=== PATIENT | female | born 1990 | race American Indian/Alaskan Native ===

== ENCOUNTER 2016-12-18 08:15 | Emergency (ER) | payer OTHER ==
[2016-12-18 09:08] VITALS: BP 128/84
--- NOTE | 2016-12-18 09:53 | Emergency Department Report ---
ED Female HPI - General Chief complaint: Skin/Abscess/Foreign Body Stated complaint: OVARIAN CYST/PAIN Time Seen by Provider: 12/18/16 09:52 Source: patient, family Mode of arrival: Ambulatory Limitations: No Limitations - History of Present Illness Initial comments: Patient here complaining of cyst in the left side of her labia since . Denies any drainage. She says she had a temp of 99.7 on Saturday. Denies Nausea or vomiting. Denies any urinary burning or frequency.Deniesany abdominal or back pain. reports pain is 10 out of 10 and she's had this several times before and they gave her antibiotic without drainage. She reports that she doesn't want any drainage she just wants antibiotic. MD Complaint: other (vaginal abscess) Onset/Timin -: days(s) Location: labia Radiation: non-radiating Severity: severe Severity scale (0 -10): 10 Quality: other (Throbbing) Consistency: constant Improves with: none, bathing Worsens with: movement Are you Now?: No Associated Symptoms: fever/chills. denies: vaginal discharge, vaginal bleeding , abdominal pain, nausea/vomiting, headaches, loss of appetite, dysuria, hematuria, rash, seizure, shortness of breath, syncope, weakness - Related Data Sexually active: Yes (with female partner) Previous Rx's Medication Instructions Recorded Last Taken Type Ibuprofen [Motrin] 600 mg PO Q8H PRN #15 tablet 12/18/16 Unknown Rx Sulfamethoxazole/Trimethoprim 1 each PO BID #20 tablet 12/18/16 Unknown Rx [Bactrim DS TAB] Allergies Allergy/AdvReac Type Severity Reaction Status Date / Time No Known Allergies Allergy Unverified 12/18/16 09:03 ED Review of Systems ROS: Stated complaint: OVARIAN CYST/PAIN Other details as noted in HPI Comment: All other systems reviewed and negative Constitutional: chills, fever ENT: denies: throat pain Respiratory: no symptoms reported Cardiovascular: as per HPI. denies: chest pain, palpitations, edema, syncope Gastrointestinal: denies: abdominal pain, nausea, vomiting, diarrhea, hematemesis Genitourinary: other (Pain and Abscess to lt labia). denies: urgency, dysuria, frequency, hematuria, discharge, abnormal menses, dyspareunia Musculoskeletal: denies: back pain, arthralgia Skin: other (Pain and Abscess to lt labia). denies: rash Neurological: denies: headache ED Past Medical Hx - Past Medical History Previous Medical History?: No - Surgical History Past Surgical History?: No - Family History Family history: no significant - Social History Smoking Status: Never Smoker Substance Use Type: None - Medications Home Medications: Home Medications Medication Instructions Recorded Confirmed Last Taken Type Ibuprofen [Motrin] 600 mg PO Q8H PRN #15 tablet 12/18/16 Unknown Rx Sulfamethoxazole/Trimethoprim 1 each PO BID #20 tablet 12/18/16 Unknown Rx [Bactrim DS TAB] ED Physical Exam - General Limitations: No Limitations General appearance: alert, in no apparent distress - Head Head exam: Present: atraumatic, normocephalic, normal inspection - Eye Eye exam: Present: normal appearance, PERRL, EOMI. Absent: periorbital swelling , periorbital tenderness Pupils: Present: normal accommodation - ENT ENT exam: Present: normal exam, normal orophraynx, mucous membranes moist, TM's normal bilaterally, normal external ear exam - Neck Neck exam: Present: normal inspection, full ROM. Absent: tenderness, meningismus, lymphadenopathy - Respiratory Respiratory exam: Present: normal lung sounds bilaterally. Absent: respiratory distress, chest wall tenderness - Cardiovascular Cardiovascular Exam: Present: regular rate, normal rhythm, normal heart sounds - GI/Abdominal GI/Abdominal exam: Present: soft, normal bowel sounds. Absent: distended, tenderness, guarding, rebound, rigid - External exam: Present: erythema (left labia with erythema), swelling (left labia with swelling areas of induration and fluctuance. Tender to palpate without drainage). Absent: normal external exam, lacerations, bleeding - Extremities Exam Extremities exam: Present: normal inspection, full ROM, normal capillary refill. Absent: tenderness, pedal edema, joint swelling, calf tenderness - Back Exam Back exam: Present: normal inspection, full ROM. Absent: tenderness, CVA tenderness (R), CVA tenderness (L), muscle spasm, paraspinal tenderness, vertebral tenderness, rash noted - Neurological Exam Neurological exam: Present: alert, oriented X3, normal gait, reflexes normal. Absent: motor sensory deficit - Psychiatric Psychiatric exam: Present: normal affect, normal mood - Skin Skin exam: Present: warm, dry, intact, other (abscess left labia) - Expanded Skin Exam Expanded Type of lesion: Present: abscess (labia) Distribution of rash: genitals Description of rash: Present: tenderness, erythematous, swelling, fluctuant, indurated. Absent: vesicular, blisters, discharge ED Course Vital Signs 12/18/16 09:03 Temperature 98.4 F Pulse Rate 81 Respiratory 16 Rate Blood Pressure 128/84 O2 Sat by Pulse 100 Oximetry - Reevaluation(s) Reevaluation #1: 12/18/16 12:19 Patient given clindamycin 600 mg IM along with Capac 5/325 mg by mouth empirically treated for abscess and medication for pain. See procedure note an incision and drainage. A she did not want area to be drained but I told her that there is pus inside that area and she is having pain due to the pus and she will need to have that area drained to get some relief. She pondered for a while and then agreed to procedure. 12/18/16 12:19 - I & D Left Vagina Type of Procedure: Complex Site: left labia Blade Size: 11 I & D Procedure: betadine prep, sterile drapes applied, sterile dressing applied , gauze wick placed Progress: Area prepped and cleansed with normal saline and Betadine-soaked and 5 cc of Marcaine injected to site prior to procedure. ED Medical Decision Making - Medical Decision Making ED course: Procedure note for I and D details. Patient presents to emergency room with left labia pain and swelling and says she's had repeated incidents in the past. One have incision and drainage but after encouragement an explanation of abscess she decided to have the procedure. Tolerated procedure well. And given clindamycin 600 mg IM and emergency room empirically. She was also given Capac 5/325 mg 2 tablets by mouth in emergency room. Abscess drained and patient says she felt relieved. I instructed her to soak in sitz baths 3-4 times a day, keep affected ear clean and dry and to return to the emergency room for removal of packing in 4 days. discharged home with prescription for Bactrim tram and Motrin Critical care attestation.: If time is entered above; I have spent that time in minutes in the direct care of this critically ill patient, excluding procedure time. ED Disposition Clinical Impression: Abscess, vagina, Encounter for incision and drainage procedure, Cellulitis of female genitalia Disposition: DISCHARGED TO HOME OR SELFCARE Is pt being admited?: No Does the pt Need Aspirin: No Condition: Stable Instructions: Abscess Incision and Drainage (ED), Cellulitis (ED) Additional Instructions: Please return to the emergency room in 4 days to have packing removed. Please take antibiotic as prescribed. Can use sitz bath 3- 4 times a day to facilitate drainage. Prescriptions: Ibuprofen [Motrin] 600 mg PO Q8H PRN #15 tablet PRN Reason: Pain Sulfamethoxazole/Trimethoprim [Bactrim DS TAB] 1 each PO BID #20 tablet Referrals: PRIMARY CARE [Primary Care Provider] - 2-3 Days [facility] [Provider Group] - 2-3 Days Forms: Accompanied Note, Work/School Release Form(ED)
[2016-12-18] MEDS ORDERED: NORCO 5/325 PO ONE (09:54)
[2016-12-18] MEDS ORDERED: MARCAINE 0.5% INFILTRATI ONE (09:54)
[2016-12-18] MEDS ORDERED: CLEOCIN IM ONE (09:54)
== END 2016-12-18 12:34 | disposition home or self-care (01) ==
LOC: ED 08:15
DX: N76.4 Abscess of vulva (principal); N76.0 Acute vaginitis
CPT/HCPCS: 96372